=== PATIENT | male | born 1940 | race Caucasian/White ===

== ENCOUNTER 2019-04-05 05:45 | Day surgery (SDC) | payer MEDICARE, OTHER ==
[2019-04-05] MEDS ORDERED: PROPOFOL 200 MG/20 ML VIAL IV ONE (07:00)
[2019-04-05] MEDS ORDERED: LIDOCAINE 1% 10 ML VIAL INJ ONE (07:00)
[2019-04-05] MEDS ORDERED: LACTATED RINGERS 1,000 ML ONE (07:06)
[2019-04-05] MEDS ORDERED: MIDAZOLAM INJ 2 MG/2 ML VIAL ONE (08:16)
--- NOTE | 2019-04-05 09:52 | OP ---
DATE OF PROCEDURE: 04/05/19 REASON FOR COLONOSCOPY: 1. GI bleed. 2. Anemia. PROCEDURE: 1. Colonoscopy. SURGEON: Barrett Loyd MD ANESTHESIA: General. PROCEDURE: Note, patient is on Plavix and has had heme positive stools. He is continuing the Plavix today, so this will be a diagnostic colonoscopy. He apparently had an EGD recently that was unrevealing. He was brought to Operating Suite in lateral position. General anesthesia was induced. Digital rectal exam was normal. The colonoscope was easily passed through the rectum. There were a bit of turns going up the descending colon which made it moderately difficult, but we reached the transverse colon and ultimately passed the scope to the terminal ileum and seeing bile come out of it. We did not intubate the terminal ileum. All we saw was multiple, small, round balls consistent with a pill that had not been absorbed. He is on antacids which could be a factor. Upon withdrawal, no significant polyps were seen. There was one small area obviously rubbed by the scope that had minor oozing, but no evidence of ongoing bleeding there. On complete withdrawal, no polyps were identified. One small hyperplastic polyp in the sigmoid colon on insertion was not re-identified, but definitely no evidence of significant polyp that would cause the anemia. He tolerated the procedure and was taken to Recovery to be discharged. #[id number] [facility]
[2019-04-05 10:07] VITALS: BP 187/96; TEMP 97.5; O2SAT 98
== END 2019-04-05 09:45 | disposition home or self-care (01) ==
LOC: AMB 05:45 → EDSEX 08:00 → AMB 09:45
PROVIDERS: ATTEND Surgery
DX: R19.5 Other fecal abnormalities (principal); D12.5 Benign neoplasm of sigmoid colon; D64.9 Anemia, unspecified; I48.91 Unspecified atrial fibrillation; E11.9 Type 2 diabetes mellitus without complications; I10 Essential (primary) hypertension; Z87.891 Personal history of nicotine dependence; M19.90 Unspecified osteoarthritis, unspecified site; Z95.5 Presence of coronary angioplasty implant and graft; Z90.49 Acquired absence of other specified parts of digestive tract; Z79.82 Long term (current) use of aspirin; Z79.899 Other long term (current) drug therapy
CPT/HCPCS: 00811; 45378; J2250; J3490; J7120

== ENCOUNTER → 2020-03-19 | Outpatient (CLI) | payer MEDICARE, OTHER ==
--- NOTE | 2020-03-20 07:49 | RAD ---
EXAM DESCRIPTION: Hand,Left 3 Views CLINICAL HISTORY: PAIN OF LEFT HAND COMPARISON: None Available. TECHNIQUE: AP, LATERAL, AND OBLIQUE FINDINGS: Three-view left hand shows degenerative narrowing of the DIP and PIP joints. 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 Advanced degenerative osteoarthrosis of the lateral carpus with narrowing of the radiocarpal joint. Chondrocalcinosis is seen involving the brain or fibrocartilage. Slight subluxation at the first metacarpal phalangeal joint seen on lateral view of the hand. Involvement of metacarpal phalangeal joints is also typical of crystalline arthropathy (chondrocalcinosis). IMPRESSION: Arthritic changes as described. Electronically signed by: Jin Grubbs MD 03/20/2020 7:47 AM CDT
== END ==
LOC: RAD 08:40
PROVIDERS: ATTEND Orthopaedic Surgery
DX: Z01.818 Encounter for other preprocedural examination (principal); M19.042 Primary osteoarthritis, left hand

== ENCOUNTER 2020-04-15 05:14 | Day surgery (SDC) | payer MEDICARE, OTHER ==
[2020-04-15] MEDS ORDERED: LIDOCAINE 1% 10 ML VIAL INJ ONE ×4 (07:00→12:08)
[2020-04-15] MEDS ORDERED: PROPOFOL 200 MG/20 ML VIAL IV ONE (07:00)
[2020-04-15] MEDS ORDERED: SODIUM CHLORIDE 0.9% 100ML 100 ML IVPB ONE (08:52)
[2020-04-15] MEDS ORDERED: SODIUM CHL 0.9% 100ML MINI-BAG 100 ML IVPB ONE ×2 (08:52→10:38)
[2020-04-15] MEDS ORDERED: TRANEXAMIC ACID 1,000 MG/10 ML VIAL ONE (08:53)
[2020-04-15] MEDS ORDERED: SODIUM CHLORIDE 0.9% 250ML 250 ML ONE (08:53)
[2020-04-15] MEDS ORDERED: ceFAZolin SODIUM 1 GM VIAL ONE ×3 (08:53→10:38)
[2020-04-15] MEDS ORDERED: LACTATED RINGERS 1,000 ML ONE ×2 (08:53→10:38)
[2020-04-15] MEDS ORDERED: VANCOMYCIN HCL INJ 1,000 MG VIAL IVPB ONE ×4 (08:53→12:08)
[2020-04-15] MEDS ORDERED: BUPIVACAINE 0.25% INJ 30 ML VIAL INJ ONE (10:25)
[2020-04-15] MEDS ORDERED: ceFAZolin SODIUM 1 GM VIAL IRRIG ONE ×2 (11:52→12:08)
[2020-04-15] MEDS ORDERED: BUPIVACAINE 0.5% 30 ML VIAL INJ ONE ×2 (11:53→12:08)
--- NOTE | 2020-04-15 13:33 | OP ---
DATE OF PROCEDURE: 04/15/20 PREOPERATIVE DIAGNOSIS: 1. Carpal tunnel syndrome, left hand. POSTOPERATIVE DIAGNOSIS: 1. Carpal tunnel syndrome, left hand. PROCEDURE: 1. Carpal tunnel release. SURGEON: Johnnie De La O MD. CABLE INSTALLER REPAIRER HELPER: Kevin Buenrostro CST, SA-C. ANESTHESIA: Local with sedation. COMPLICATIONS: None. FINDINGS: Severe narrowing of the medial nerve across the carpel tunnel. INDICATION: Roderick has a history of severe pain in addition to numbness. 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 Because of his ongoing symptoms, he has requested operative intervention. After discussing the risks, benefits and alternatives to that, the patient has given informed consent for carpal tunnel release. PROCEDURE: The patient was brought to the Operating Room and placed in the supine position. Sedation was administered and local anesthetic was injected into the operative area under sterile conditions. After the injection of anesthetic, the arm was sterilely prepped and draped. A longitudinal incision was made directly overlying the transverse carpal ligament and blunt dissection was carried down to the ligament. The transverse carpal ligament was sharply transected along its length and a [place] elevator was used to ensure complete release of the ligament. Once release had been confirmed, the wound was thoroughly irrigated and the wound was closed with Nylon suture. A sterile dressing was placed and the patient was taken to the Day Surgery Unit. POSTOPERATIVE PLAN: The patient has been encouraged to do range of motion of the digits and will followup with us in two days. #[id number] [facility]
[2020-04-15 13:42] VITALS: BP 138/67; TEMP 97.8; O2SAT 99
== END 2020-04-15 13:41 | disposition home or self-care (01) ==
LOC: AMB 05:14
PROVIDERS: ATTEND Orthopaedic Surgery
DX: G56.02 Carpal tunnel syndrome, left upper limb (principal); I10 Essential (primary) hypertension; I25.10 Atherosclerotic heart disease of native coronary artery without angina pectoris; I48.91 Unspecified atrial fibrillation; K21.9 Gastro-esophageal reflux disease without esophagitis; Z95.5 Presence of coronary angioplasty implant and graft; Z79.82 Long term (current) use of aspirin; Z79.899 Other long term (current) drug therapy
CPT/HCPCS: 01810; 64721; 80307; J0690; J3370; J3490; J7050; J7120